=== PATIENT | male | born 1985 | race Caucasian/White ===

== ENCOUNTER → 2020-03-10 | Outpatient (CLI) | payer OTHER ==
[2020-03-10 14:03] LABS: Basophils % (A) 0 %; Eosinophils # (A) 0.1 k/uL (0-0.7); Eosinophils % (A) 1 %; HCT 43.7 % (39.0-53.0); HGB 14.2 gm/dL (13.0-17.5); Lymphocytes # (A) 2.1 k/uL (1.0-4.8); Lymphocytes % (A) 36 %; MCH 29.2 pg (25.0-35.0); MCHC 32.6 g/dL (31.0-37.0); MCV 89.6 fL (80.0-100.0); Mean Platelet Volume 7.4; Monocytes # (A) 0.3 k/uL (0-1.0); Monocytes % (A) 5 %; Neutrophils # (A) 3.3 k/uL (1.3-7.7); Neutrophils % (A) 56 %; Platelet Count 216 k/uL (150-450); RBC 4.87 m/uL (4.30-5.90); RDW 12.5 % (11.5-15.5); WBC 5.9 k/uL (3.8-10.6)
[2020-03-10 17:37] LABS: African American GFR (CKD) 112.5 (60.0-200.0); Albumin 4.9 g/dL (3.80-4.90); Albumin/Globulin Ratio 2.23 (1.60-3.17); Anion Gap 8.4 mmol/L (4.00-12.00); Calcium 9.8 mg/dL (8.7-10.3); Carbon Dioxide 30.6 mmol/L (21.6-31.8); Chol/HDL Ratio 3.92; Globulin 2.2 g/dL (1.6-3.3); LDL Cholesterol,Calculated 165.4 mg/dL (0.0-131.0); Non-African American GFR(CKD) 97.1 (60.0-200.0); Total Bilirubin 0.7 mg/dL (0.3-1.2); Total Protein 7.1 g/dL (6.2-8.2); VLDL Calculation 21.6 mg/dL (5.00-40.00)
[2020-03-10 17:47] LABS: T4, Free (Free Thyroxine) 1.2 ng/dL (0.80-1.80)
[2020-03-10 18:35] LABS: Hemoglobin A1C 5.2 % (4.0-6.0)
== END | disposition home or self-care (01) ==
LOC: LABWHC1 12:59
PROVIDERS: ATTEND Family Medicine
DX: E66.3 Overweight (principal)
CPT/HCPCS: 36415; 80053; 80061; 83036; 84439; 84443; 85025

== ENCOUNTER 2022-05-18 14:37 | Emergency (ER) | payer BC, OTHER ==
--- NOTE | 2022-05-18 15:28 | ED ---
General Adult HPI - General Chief complaint: Allergic Reaction Stated complaint: Allergic reaction Time Seen by Provider: 05/18/22 14:44 Source: patient, EMS, RN notes reviewed, old records reviewed Mode of arrival: EMS Limitations: no limitations - History of Present Illness Initial comments: 36-year-old male status post bee sting. Patient developed dyspnea, throat swelling and nausea. Patient has had previous reaction to bee envenomation but has not had an anaphylactic reaction in the past. He does not have an EpiPen. Paramedics were called patient was given epinephrine, so a Medrol, Benadryl prior to arrival. Patient's symptoms have significantly improved. The patient had significant facial swelling difficulty breathing prior to administration of medications. He was bitten or stung in the left hand. - Related Data Previous Rx's Medication Instructions Recorded EPINEPHrine (Auto Inject) [Epipen] 0.3 mg IM ONCE PRN #2 each 05/18/22 Famotidine [Pepcid] 20 mg PO DAILY #7 tablet 05/18/22 diphenhydrAMINE [Benadryl] 25 mg PO TID PRN #21 capsule 05/18/22 predniSONE 50 mg PO DAILY #5 tab 05/18/22 Allergies Allergy/AdvReac Type Severity Reaction Status Date / Time bee venom protein (honey bee) Allergy Anaphylaxis Verified 05/18/22 14:54 Review of Systems ROS Statement: Those systems with pertinent positive or pertinent negative responses have been documented in the HPI. ROS Other: All systems not noted in ROS Statement are negative. Past Medical History Past Medical History: No Reported History History of Any Multi-Drug Resistant Organisms: None Reported Past Surgical History: No Surgical Hx Reported Past Psychological History: Anxiety, Depression Smoking Status: Never smoker Past Alcohol Use History: Occasional Past Drug Use History: None Reported General Exam Limitations: no limitations General appearance: alert, in no apparent distress Head exam: Present: atraumatic, normocephalic Eye exam: Present: normal appearance, PERRL ENT exam: Present: mucous membranes dry Neck exam: Present: normal inspection. Absent: tenderness, meningismus Respiratory exam: Present: normal lung sounds bilaterally. Absent: respiratory distress, wheezes Cardiovascular Exam: Present: regular rate, normal rhythm GI/Abdominal exam: Present: soft. Absent: distended, tenderness, guarding Extremities exam: Present: other (Left hand is erythematous and swollen) Neurological exam: Present: alert, altered Psychiatric exam: Present: normal affect, normal mood Skin exam: Present: erythema (Facial swelling), urticaria Course Vital Signs 05/18/22 05/18/22 05/18/22 14:40 14:45 15:27 Temperature 98.6 F Pulse Rate 84 81 Respiratory 18 18 17 Rate Blood Pressure 149/91 161/87 O2 Sat by Pulse 100 96 Oximetry Medical Decision Making - Medical Decision Making 36-year-old male with anaphylaxis to bee sting. Patient had been treated with epinephrine, site Medrol, Benadryl prior to arrival. He had some erythematous rash and facial swelling upon presentation. No wheezing. No vomiting. Vital signs stable. He is observed in the emergency department for 3 hours without rebound. He is prescribed prednisone, Benadryl, Pepcid, and EpiPen. He will follow-up with primary care physician. Take medications as prescribed. Prescriptions filled prior to discharge Disposition Clinical Impression: Anaphylaxis, Allergic reaction to insect sting Disposition: HOME SELF-CARE Condition: Fair Instructions (If sedation given, give patient instructions): Anaphylaxis (ED) Prescriptions: diphenhydrAMINE [Benadryl] 25 mg PO TID PRN #21 capsule PRN Reason: Allergic Reaction EPINEPHrine (Auto Inject) [Epipen] 0.3 mg IM ONCE PRN #2 each PRN Reason: Anaphylaxis Famotidine [Pepcid] 20 mg PO DAILY #7 tablet predniSONE 50 mg PO DAILY #5 tab Is patient prescribed a controlled substance at d/c from ED?: No Referrals: Jalil Rosales DO [Primary Care Provider] - 1-2 days
[2022-05-18 17:51] VITALS: BP 140/87; PULSE 74; RESP 18; TEMP 98.5
== END 2022-05-18 17:50 | disposition home or self-care (01) ==
LOC: EC 14:37
DX: T63.481A Toxic effect of venom of other arthropod, accidental (unintentional), initial encounter (principal); T78.2XXA Anaphylactic shock, unspecified, initial encounter; Z91.030 Bee allergy status
CPT/HCPCS: 99285

== ENCOUNTER 2025-02-16 09:44 | Emergency (ER) | payer BC ==
[2025-02-16 09:57] VITALS: RESP 16
[2025-02-16] MEDS: predniSONE 20 MG TAB PO STA (11:06)
[2025-02-16 11:19] LABS: Basophils # (A) 0.02 10*3/uL (0.00-0.10); Basophils % (A) 0.3 %; Eosinophils # (A) 0.13 10*3/uL (0.04-0.35); Eosinophils % (A) 1.6 %; HCT 42.1 % (39.6-50.0); HGB 14.3 g/dL (13.0-17.0); Lymphocytes # (A) 1.62 10*3/uL (0.90-5.00); Lymphocytes % (A) 20.4 %; MCH 29.7 pg (27.0-32.0); MCV 87.5 fL (80.0-97.0); Mean Platelet Volume 9.8 fL (9.5-12.2); Monocytes # (A) 0.57 10*3/uL (0.20-1.00); Monocytes % (A) 7.2 %; Neutrophils # (A) 5.56 10*3/uL (1.80-7.70); Neutrophils % (A) 70.1 %; Platelet Count 247 10*3/uL (140-440); RBC 4.81 10*6/uL (4.40-5.60); RDW 12.7 % (11.5-14.5); WBC 7.93 10*3/uL (4.50-10.00)
[2025-02-16 11:37] LABS: African American GFR (CKD) >90 (>60 ml/min/1.73 sqM); Anion Gap 9 mmol/L; Blood Urea Nitrogen 12 mg/dL (9-20); Calcium 9.6 mg/dL (8.4-10.2); Carbon Dioxide 30 mmol/L (22-30); Chloride 101 mmol/L (98-107); Glucose 94 mg/dL (74-99); Non-African American GFR(CKD) >90 (>60 ml/min/1.73 sqM); Potassium 4.2 mmol/L (3.5-5.1); Sodium 140 mmol/L (137-145)
[2025-02-16 11:58] VITALS: PULSE 56; TEMP 98
[2025-02-16 12:04] LABS: Influenza A Not Detected (Not Detectd); Influenza B Not Detected (Not Detectd); RSV Not Detected (Not Detectd)
--- NOTE | 2025-02-16 12:09 | XR ---
EXAMINATION TYPE: XR chest 2V DATE OF EXAM: 02/16/2025 12:02 PM COMPARISON: None. CLINICAL INDICATION: Male, 39 years old with history of cough, TECHNIQUE: XR chest 2V view(s) obtained. FINDINGS: The heart size is normal. The pulmonary vasculature is normal. The lungs are clear. IMPRESSION: 1. No acute pulmonary process. [facility], , 02/16/2025 12:07 PM
--- NOTE | 2025-02-16 12:34 | ED ---
General Adult HPI - General Chief complaint: Recheck/Abnormal Lab/Rx Stated complaint: abn labs Time Seen by Provider: 02/16/25 10:40 Source: patient, family, RN notes reviewed, old records reviewed Mode of arrival: ambulatory Limitations: no limitations - History of Present Illness Initial comments: 39-year-old male who is sent in by his PCP over concern for hypertension. Has been on stimulant as well as numerous decongestions for 1 week for URI symptoms with no relief. Now is losing his voice and having worsening coughing which is why he presented to the PCPs office. Was given a dose of clonidine after blood pressure had systolics over 200s. He had no symptoms regarding this denying any chest pain at any point, denying any headaches or blurry vision at any point. Was sent here for further evaluation for the hypertension. Patient currently has mildly hypertension with no symptoms other than his productive cough that has been present for the last week. No fevers. No significant past medical history. - Related Data Previous Rx's Medication Instructions Recorded EPINEPHrine (Auto Inject) [Epipen] 0.3 mg IM ONCE PRN #2 each 05/18/22 Famotidine [Pepcid] 20 mg PO DAILY #7 tablet 05/18/22 diphenhydrAMINE [Benadryl] 25 mg PO TID PRN #21 capsule 05/18/22 predniSONE 50 mg PO DAILY #5 tab 05/18/22 Albuterol Inhaler [Ventolin Hfa 1 puff INHALATION QID #8 gm 02/16/25 Inhaler] Azithromycin [Zithromax] 250 mg PO DAILY 4 Days #4 tab 02/16/25 amLODIPine [Norvasc] 5 mg PO DAILY PRN 7 Days #7 tab 02/16/25 predniSONE [Deltasone] 40 mg PO DAILY 5 Days #10 tab 02/16/25 Allergies Allergy/AdvReac Type Severity Reaction Status Date / Time bee venom protein (honey bee) Allergy Anaphylaxis Verified 05/18/22 14:54 Review of Systems ROS Statement: Those systems with pertinent positive or pertinent negative responses have been documented in the HPI. Review of Systems: CONST: Denies fever EYES: Denies blurry vision ENT: Denies nasal congestion C/V: Denies Chest pain RESP: Denies shortness of breath GI: Denies abdominal pain : Denies dysuria SKIN: Denies rash. MSK: Denies joint pain. NEURO: Denies headache ROS Other: All systems not noted in ROS Statement are negative. Past Medical History Past Medical History: No Reported History History of Any Multi-Drug Resistant Organisms: None Reported Past Surgical History: No Surgical Hx Reported Past Psychological History: ADD/ADHD, Anxiety, Depression Smoking Status: Never smoker Past Alcohol Use History: Occasional Past Drug Use History: None Reported General Exam - General Exam Comments Initial Comments: General: Appears in no acute distress. HEAD: Normal with no signs of head trauma. EYES: EOMI ENT: Hearing grossly intact, normal oropharynx. RESPIRATORY: Clear breath sounds bilaterally with some mild central wheezing and coarse breath sounds. No increased work of breathing. No hypoxia. C/V: Regular rate and rhythm. S1 and S2 auscultated, no edema, peripheral pulses 2+ and intact throughout ABD: Abd is soft, nontender, nondistended EXT: No obvious deformity SKIN: No rashes or lesions observed on exposed skin. NEURO: Alert and oriented x 4. No obvious focal deficits Limitations: no limitations Course Vital Signs 02/16/25 02/16/25 02/16/25 09:54 10:57 10:58 Temperature 97.4 F L Pulse Rate 54 L Respiratory 16 16 Rate Blood Pressure 176/109 157/13 O2 Sat by Pulse 99 Oximetry 02/16/25 02/16/25 11:56 12:50 Temperature 98 F Pulse Rate 56 L Respiratory 16 Rate Blood Pressure 141/92 138/90 O2 Sat by Pulse 99 Oximetry Medical Decision Making - Medical Decision Making Was pt. sent in by a medical professional or institution (, PA, RETAIL AGENT, urgent care, hospital, or long-term...) When possible be specific @ -Sent by PCP to be evaluated for hypertension. Did you speak to anyone other than the patient for history (EMS, parent, family, police, friend...)? What history was obtained from this source @ -No Did you review nursing and triage notes (agree or disagree)? Why? @ -I reviewed and agree with nursing and triage notes Were old charts reviewed (outside hosp., previous admission, EMS record, old EKG, old radiological studies, urgent care reports/EKG's, long-term records)? Report findings @ -No old charts were reviewed Differential Diagnosis (chest pain, altered mental status, abdominal pain women, abdominal pain men, vaginal bleeding, weakness, fever, dyspnea, syncope, headache, dizziness, GI bleed, back pain, seizure, CVA, palpatations, mental health, musculoskeletal)? @ -Medication side effect, new onset hypertension, URI, pneumonia, tracheobronchitis. This list is not all-inclusive. EKG interpreted by me (3pts min.). @ -As above X-rays interpreted by me (1pt min.). @ -Chest x-ray reveals no evidence of acute infiltrate or pneumonia. No obviou s acute cardiopulmonary process. CT interpreted by me (1pt min.). @ -None done U/S interpreted by me (1pt. min.). @ -None done What testing was considered but not performed or refused? (CT, X-rays, U/S, labs)? Why? @ -None What meds were considered but not given or refused? Why? @ -None Did you discuss the management of the patient with other professionals (professionals i.e. , PA, RETAIL AGENT, lab, RT, psych nurse, social worker psychiatric, oxyacetylene torch operator, teacher, tax compliance officer, case worker)? Give summary @ -No Was smoking cessation discussed for >3mins.? @ -No Was critical care preformed (if so, how long)? @ -No Were there social determinants of health that impacted care today? How? (Homelessness, low income, unemployed, alcoholism, drug addiction, transportation, low edu. Level, literacy, decrease access to med. care, penitentiary, rehab)? @ -No Was there de-escalation of care discussed even if they declined (Discuss DNR or withdrawal of care, Hospice)? DNR status @ -No What co-morbidities impacted this encounter? (DM, HTN, Smoking, COPD, CAD, Cancer, CVA, ARF, Chemo, Hep., AIDS, mental health diagnosis, sleep apnea, morbid obesity)? @ -None Was patient admitted / discharged? Hospital course, mention meds given and route, prescriptions, significant lab abnormalities, going to OR and other pertinent info. @ -Patient presents with URI symptoms as well as incidental finding of hypertension at a PCP appointment. Sent here for further evaluation. Received clonidine at the PCPs office. Blood pressure does seem to be trending down as was systolics 200s outpatient. Presents with systolics 176. Will continue to monitor at this time. Vitals otherwise within acceptable limits. We will obtain viral swabs, basic labs, chest x-ray. Patient received a dose of steroids and we will get a screening EKG as well. Patient was in agreement this plan. EKG shows no signs of acute ischemia. Chest x-ray is unremarkable. Labs are all within acceptable limits including negative viral swabs. On reevaluation, blood pressure is within acceptable limits at 138/90. I believe it is safe for him to be discharged home. He will be treated for tracheobronchitis with prednisone, azithromycin, as well as a albuterol inhaler. I will also provide him with a prescription for as needed Norvasc. He will receive 7 tablets. We discussed that his hypertension is likely related to the combination of the stimulant as well as the decongestants. Recommended holding these medications and only taking the medications provided today. He can take his blood pressure once per day and administer Norvasc if the systolics are over 160. Recommend follow-up with his PCP for further monitoring regarding his hyp ertension. He will keep a hypertension log. He was in agreement this plan. I instructed the patient to follow up with their PCP in the next 1-3 days. I explained that the patient should return to the emergency department if they experience any worsening symptoms. Strict return precautions were discussed with the patient. The patient expressed understanding of these instructions. I answered all questions that the patient had. The patient was discharged home in good condition with their prescriptions and follow up information. Undiagnosed new problem with uncertain prognosis? @ -No Drug Therapy requiring intensive monitoring for toxicity (Heparin, Nitro, Insulin, Cardizem)? @ -No Were any procedures done? @ -No Diagnosis/symptom? @ -Asymptomatic hypertension, tracheobronchitis Acute, or Chronic, or Acute on Chronic? @ -Acute Uncomplicated (without systemic symptoms) or Complicated (systemic symptoms)? @ -Uncomplicated Side effects of treatment? @ -No Exacerbation, Progression, or Severe Exacerbation? @ -No Poses a threat to life or bodily function? How? (Chest pain, [place], OR, pneumonia, PE, COPD, DKA, ARF, appy, cholecystitis, CVA, Diverticulitis, Homicidal, Suicidal, threat to staff... and all critical care pts) @ -Unlikely at this time - Lab Data Result diagrams: 02/16/25 11:09 02/16/25 11:09 Lab Results 02/16/25 02/16/25 02/16/25 Range/Units 10:54 11:09 11:09 WBC 7.93 (4.50-10.00) 10*3/uL RBC 4.81 (4.40-5.60) 10*6/uL Hgb 14.3 (13.0-17.0) g/dL Hct 42.1 (39.6-50.0) % MCV 87.5 (80.0-97.0) fL MCH 29.7 (27.0-32.0) pg MCHC 34.0 (32.0-37.0) g/dL Plt Count 247 (140-440) 10*3/uL MPV 9.8 (9.5-12.2) fL Immature Gran % (Auto) 0.4 % Neutrophils % 70.1 % Lymphocytes % 20.4 % Monocytes % 7.2 % Eosinophils % 1.6 % Basophils % 0.3 % Immature Gran # 0.03 (0.00-0.04) 10*3/uL Neutrophils # 5.56 (1.80-7.70) 10*3/uL Lymphocytes # 1.62 (0.90-5.00) 10*3/uL Monocytes # 0.57 (0.20-1.00) 10*3/uL Eosinophils # 0.13 (0.04-0.35) 10*3/uL Basophils # 0.02 (0.00-0.10) 10*3/uL Sodium 140 (137-145) mmol/L Potassium 4.2 (3.5-5.1) mmol/L Chloride 101 (98-107) mmol/L Carbon Dioxide 30 (22-30) mmol/L Anion Gap 9 mmol/L BUN 12 (9-20) mg/dL Creatinine 0.72 (0.66-1.25) mg/dL Est GFR (CKD-EPI)AfAm >90 (>60 ml/min/1.73 sqM) Est GFR (CKD-EPI)NonAf >90 (>60 ml/min/1.73 sqM) Glucose 94 (74-99) mg/dL Calcium 9.6 (8.4-10.2) mg/dL Influenza Type A (PCR) Not Detected (Not Detectd) Influenza Type B (PCR) Not Detected (Not Detectd) RSV (PCR) Not Detected (Not Detectd) SARS-CoV-2 (PCR) Not Detected (Not Detectd) - EKG Data -: EKG Interpreted by Me EKG Comments: 12-lead Electrocardiogram Interpretation Note EKG was reviewed and interpreted by myself. 12-lead ECG performed at 1059 is interpreted by me as revealing sinus bradycardia at a rate of 50 beats per minute. [place] is normal. [place] interval is 155 ms, QRS durations 84 ms, QTc is 401 ms.. There were no ST or T wave abnormalities to suggest myocardial ischemia or injury. R wave progression across the precordium was satisfactory. By my interpretation this EKG is non-diagnostic for acute ischemia. Disposition Clinical Impression: Hypertension, Tracheobronchitis Disposition: HOME SELF-CARE Condition: Good Instructions (If sedation given, give patient instructions): Acute Bronchitis (ED), Hypertension (ED) Additional Instructions: Your hypertension is likely rate related to the decongestants and stimulants. Please avoid these. Use the prednisone as well as azithromycin for tracheobronchitis. Follow-up with your PCP in the next 1 to 3 days. Monitor blood pressure on a daily basis and keep a record of it. He will be provided Norvasc which is a blood pressure medication. Take this once per day at most for blood pressures if systolic blood pressures are greater than 160. Please return to the ER if you have any worsening symptoms or concerns. Only take the blood pressure medications if systolic blood pressures greater than 160. Do not take if no other symptoms and not elevated blood pressure. It is in as needed medication until you follow-up with your PCP. Prescriptions: predniSONE [Deltasone] 40 mg PO DAILY 5 Days #10 tab amLODIPine [Norvasc] 5 mg PO DAILY PRN 7 Days #7 tab PRN Reason: Hypertension Albuterol Inhaler [Ventolin Hfa Inhaler] 1 puff INHALATION QID #8 gm Azithromycin [Zithromax] 250 mg PO DAILY 4 Days #4 tab Is patient prescribed a controlled substance at d/c from ED?: No Referrals: Jalil Rosales DO [Primary Care Provider] - 1-2 days Time of Disposition: 12:34
[2025-02-16] MEDS: AZITHROMYCIN 500 MG TAB PO STA (12:46)
[2025-02-16 12:51] VITALS: BP 138/90
== END 2025-02-16 12:53 | disposition home or self-care (01) ==
LOC: EC 09:44
DX: I10 Essential (primary) hypertension (principal); J40 Bronchitis, not specified as acute or chronic; R00.1 Bradycardia, unspecified; Z91.030 Bee allergy status; Z11.52 Encounter for screening for COVID-19
CPT/HCPCS: 36415; 93005; 80048; 85025; 87636; 71046; 99284; J7512